=== PATIENT | female | born 1965 | race Caucasian/White ===

== ENCOUNTER 2017-06-24 15:34 | Emergency (ER) | payer OTHER ==
[~2017-06-24 15:34] MED LIST: CLARITIN10 M3 PO; CLONAZEPAM1 MG PO; COL-RITE100 MG PO; DAILY MULTIPLE1 EACH PO; DEPAKOTE250 MG PO; DEPAKOTE500 MG PO; LEXAPRO10 MG PO; RISPERDAL0.25 M1 PO; X VIATE TP
[2017-06-24 15:48] LABS: EOSINOPHIL (%) 1.7 % (0-5); EOSINOPHIL COUNT 0.2 K/uL (0-0.3); HEMATOCRIT 37.7 % (36.0-46.0); IMMATURE GRANULOCYTE (%) 1.8 % (0.0-0.7); IMMATURE GRANULOCYTE COUNT 0.2 K/uL; INSTRUMENT ABS NEUTROPHIL CT 6.4 K/uL; LYMPHOCYTE COUNT 4.2 K/uL (1.0-2.8); MCH 28.8 PG (29.0-34.0); MCHC 30.5 G/DL (30.0-36.0); MCV 94.3 FL (83-99); MEAN PLAT.VOLUME 10.3 uM^3 (9.5-12.4); MONOCYTE (%) 7.5 % (3-12); MONOCYTE COUNT 0.9 K/uL (0-0.8); NEUTROPHIL (%) 53.5 % (45-76); NEUTROPHIL COUNT 6.4 K/uL (1.8-6.4); PLATELET COUNT 210 K/uL (156-360); RBC DIS.WIDTH-CV 12.7 % (11.8-14.6); RBC DIS.WIDTH-SD 43.8 % (39-53); WHITE BLOOD COUNT 11.9 K/uL (4.1-10.2)
[2017-06-24 15:56] LABS: AMYLASE 89 IU/L (1-118); CHLORIDE 99 mEq/L (99-109); POTASSIUM 3.9 mEq/L (3.7-5.4)
[2017-06-24 15:57] LABS: SODIUM 138 mEq/L (136-147)
[2017-06-24 15:58] LABS: GLUCOSE 163 mg/dL (70-99)
[2017-06-24 16:00] LABS: ANION GAP 11 MEQ/L (2-14)
[2017-06-24 16:01] LABS: SERUM ETHYL ALCOHOL < 10 mg/dL
[2017-06-24 16:02] LABS: GFR ESTIMATE (CALCULATED) > 59 mL/min/
[2017-06-24 16:03] LABS: UREA NITROGEN (BUN) 15 mg/dL (9-23)
[2017-06-24 16:05] LABS: LIPASE 21 U/L (1.0-51.0)
[2017-06-24 16:11] LABS: QUANTITATIVE HCG < 4.0 MIU/ML
[2017-06-24 17:14] LABS: ADD MIUA? NO; BILIRUBIN NEGATIVE; BLOOD NEGATIVE; COLOR YELLOW ((YELLOW)); GLUCOSE (STRIP) NEGATIVE; KETONES NEGATIVE; LEUKOCYTES NEGATIVE; NITRITE NEGATIVE; PROTEIN (STRIP) NEGATIVE; UCUL ADDED? NO; UROBILINOGEN 0.2 MG/DL (0.2-1.0)
[2017-06-24 17:27] LABS: SPECIFIC GRAVITY 1.074 (1.000-1.030)
[2017-06-24 17:28] LABS: AMPHETAMINE NEGATIVE (500 ng/mL); BARBITURATES NEGATIVE (200 ng/mL); BENZODIAZEPINES NEGATIVE (150 ng/mL); COCAINE NEGATIVE (150 ng/mL); INTERNAL CONTROLS VALID? YES; METHADONE NEGATIVE (200 ng/mL); METHAMPHETAMINE NEGATIVE (500 ng/mL); OPIATES (MORPHINE) NEGATIVE (100 ng/mL); OXYCODONE NEGATIVE (100 ng/mL); PHENCYCLIDINE NEGATIVE (25 ng/mL); PROPOXYPHENE NEGATIVE (300 ng/mL); THC CANNABINOIDS NEGATIVE (50 ng/mL); TRICYCLIC ANTIDEPRESSANTS NEGATIVE (300 ng/mL)
== END 2017-06-24 18:50 | disposition short-term general hospital (02) ==
LOC: TRA 15:34
PROVIDERS: Emergency Medicine
DX: S12.300A Unspecified displaced fracture of fourth cervical vertebra, initial encounter for closed fracture (principal); S12.500A Unspecified displaced fracture of sixth cervical vertebra, initial encounter for closed fracture; S12.600A Unspecified displaced fracture of seventh cervical vertebra, initial encounter for closed fracture; S12.400A Unspecified displaced fracture of fifth cervical vertebra, initial encounter for closed fracture; S10.93XA Contusion of unspecified part of neck, initial encounter; S01.01XA Laceration without foreign body of scalp, initial encounter; S06.5X9A Traumatic subdural hemorrhage with loss of consciousness of unspecified duration, initial encounter; S42.111A Displaced fracture of body of scapula, right shoulder, initial encounter for closed fracture; S22.31XA Fracture of one rib, right side, initial encounter for closed fracture; S22.32XA Fracture of one rib, left side, initial encounter for closed fracture; S22.019A Unspecified fracture of first thoracic vertebra, initial encounter for closed fracture; S32.019A Unspecified fracture of first lumbar vertebra, initial encounter for closed fracture; S32.029A Unspecified fracture of second lumbar vertebra, initial encounter for closed fracture; S32.039A Unspecified fracture of third lumbar vertebra, initial encounter for closed fracture; S32.049A Unspecified fracture of fourth lumbar vertebra, initial encounter for closed fracture; S32.059A Unspecified fracture of fifth lumbar vertebra, initial encounter for closed fracture; S60.222A Contusion of left hand, initial encounter; H11.32 Conjunctival hemorrhage, left eye; V43.62XA Car passenger injured in collision with other type car in traffic accident, initial encounter; Y92.410 Unspecified street and highway as the place of occurrence of the external cause; E66.01 Morbid (severe) obesity due to excess calories; F84.0 Autistic disorder; M19.042 Primary osteoarthritis, left hand; R93.9 Diagnostic imaging inconclusive due to excess body fat of patient
CPT/HCPCS: 70450; 70486; 71010; 71260; 72125; 72129; 72132; 72170; 73060; 73130; 74177; 80048; 81003; 82150; 83690; 84702; 85025; 86850; 86900; 86901; 94799; G0480